=== PATIENT | female | born 1940 | race Caucasian/White ===

== ENCOUNTER 2021-08-12 11:15 | Day surgery (SDC) | payer OTHER ==
[~2021-08-12] VITALS: Ht 154.9 cm; Wt 63.5 kg
[~2021-08-12 11:15] MED LIST: ALTACE5 MG PO; CRESTOR5 MG PO; NEURONTIN600 M1 PO; SYNJARDY XR 5-1 EACH PO; TOUJEO SOL300 UNIT/1; ZOLOFT100 MG PO
== END 2021-08-12 19:45 | disposition home or self-care (01) ==
LOC: CIR.AMB 11:15
PROVIDERS: ATTEND Surgery
DX: C50.811 Malignant neoplasm of overlapping sites of right female breast (principal); R59.0 Localized enlarged lymph nodes; J45.909 Unspecified asthma, uncomplicated; G47.33 Obstructive sleep apnea (adult) (pediatric); Z99.89 Dependence on other enabling machines and devices; Z87.891 Personal history of nicotine dependence; E10.9 Type 1 diabetes mellitus without complications; M19.90 Unspecified osteoarthritis, unspecified site; K21.9 Gastro-esophageal reflux disease without esophagitis; R42 Dizziness and giddiness; Z20.822 Contact with and (suspected) exposure to COVID-19